=== PATIENT | male | born 1945 | race Hispanic/Latino ===

== ENCOUNTER 2018-09-12 11:08 | Day surgery (SDC) | payer OTHER ==
[2018-09-12 11:20] VITALS: BP 140/78
[2018-09-12 11:48] LABS: INR 0.97 (0.85-1.15); PARTIAL THROMBOPLASTIN TIME 24.5 SEC (26.3-35.5); PROTHROMBIN TIME 10.2 SEC (9.6-11.6)
[2018-09-12 11:50] LABS: POTASSIUM 5.4 mmol/L (3.5-5.1)
[2018-09-12] MEDS ORDERED: SODIUM CHLORIDE 0.9% 1000ML 1,000 ML IV ONE (12:13)
[2018-09-12 12:20] LABS: CREATININE 11.6 mg/dL (0.5-1.5)
--- NOTE | 2018-09-12 16:05 | NUR ---
PROCEDURE PT TAKEN TO [employer]ANGANESE HEATER FOR SCHEDULED PROCEDURE.
[2018-09-12] MEDS ORDERED: HEPARIN SODIUM 1000UNIT/ML 10ML VIAL ONE (16:19)
[2018-09-12] MEDS ORDERED: LIDOCAINE HCL 1% MDV 50ML VIAL ONE (16:20)
[2018-09-12] MEDS ORDERED: IODIXANOL 320 MG/ML 100 ML VIAL ONE (16:20)
[2018-09-12 17:40] VITALS: BP 154/71
--- NOTE | 2018-09-12 17:40 | NUR ---
POST OP RECEIVED PT FROM PUBLIC WEIGHER. S/P LEFT THIGH GRAFT DECLOT. DRESSING TO SITE DRY AND INTACT, PER DR ORDERS GRAFT READY TO BE USE. VS STABLE ON ARRIVAL. PT AWAKE AND ALERT, DENIED ANY PAIN OR DISCOMFORTS
[2018-09-12 17:55] VITALS: BP 148/70
[2018-09-12 18:10] VITALS: BP 152/68
--- NOTE | 2018-09-12 18:10 | NUR ---
DC DC INSTRUCTIONS GIVEN TO PT / NEPHEW, PT STATED [facility] CALLED HIM TO GO IN TOMORROW AT 8 AM TO RESUME HIS DIALYSIS THAT HE DIDN'T GET TODAY DUE TO CLOGGED LEFT THIGH GRAFT. PT INSTRUCTED TO KEEP DRESSING TO SITE DRY AND INTACT, PIV REMOVED.
--- NOTE | 2018-09-12 18:15 | NUR ---
DC PT DC HOME VIA WC, ACCOMPANIED BY NEPHEW, DRESSING TO LEFT UPPER THIGH AREA DRY AND INTACT, NO BLEEDING OR HEMATOMA TO SITE. VS STABLE. PT DENIED ANY PAIN OR DISCOMFORTS.
[2018-09-14] MEDS ORDERED: HYDR-3422 PO (09:56)
[2018-09-14] MEDS ORDERED: MIRT-73 PO (09:56)
[2018-09-14] MEDS ORDERED: OMEG-12 PO (09:56)
[2018-09-14] MEDS ORDERED: RANI150C4 PO (09:56)
[2018-09-14] MEDS ORDERED: FOLI0.8T2 PO (09:56)
[2018-09-14] MEDS ORDERED: SERT50TA12 PO (10:00)
[2018-09-14] MEDS ORDERED: CALC667C10 PO (10:00)
[2018-09-14] MEDS ORDERED: VITA100049 PO (10:00)
[2018-09-14] MEDS ORDERED: MIDO5TAB PO (10:03)
== END 2018-09-12 18:15 | disposition home or self-care (01) ==
LOC: CLH 11:08 → DAH 11:08 → CLH 18:15
PROVIDERS: ATTEND Internal Medicine Nephrology
DX: T82.868A Thrombosis due to vascular prosthetic devices, implants and grafts, initial encounter (principal); I12.0 Hypertensive chronic kidney disease with stage 5 chronic kidney disease or end stage renal disease; E11.22 Type 2 diabetes mellitus with diabetic chronic kidney disease; N18.6 End stage renal disease; Z99.2 Dependence on renal dialysis; Z98.890 Other specified postprocedural states; Z79.899 Other long term (current) drug therapy
CPT/HCPCS: 36415; 36905; 80048; 85610; 85730; A4606; C1725 ×2; C1757; C1769 ×2; C1894 ×2; J1644 ×2; J3490; J7030; Q9967

== ENCOUNTER 2018-09-13 10:14 | Day surgery (SDC) | payer OTHER ==
[~2018-09-13] VITALS: Ht 172.7 cm; Wt 91.7 kg
[2018-09-13 10:55] VITALS: BP 149/80
--- NOTE | 2018-09-13 13:50 | NUR ---
PROCEDURE PT TAKEN TO SECURITY INSTALLATION TECHNICIAN FOR SCHEDULED PROCEDURE
[2018-09-13] MEDS ORDERED: LIDOCAINE HCL 1% MDV 50ML VIAL ONE (14:17)
[2018-09-13 15:05] VITALS: BP 155/82
--- NOTE | 2018-09-13 15:05 | NUR ---
POST RECEIVED PT FROM [employer]KH[employer]RIMP BOAT. S/P JARET CATH PLACEMENT TO RIGHT IJ. DRESSING TO SITE DRY AND INTACT, VS STABLE ON ARRIVAL. PT AWAKE AND ALERT, DENIES ANY PAIN OR DISCOMFORTS. DRESSING TO LEFT UPPER THIGH AREA WHERE HE HAS HIS AVG.
[2018-09-13 15:20] VITALS: BP 148/78
[2018-09-13 15:35] VITALS: BP 146/78
[2018-09-13 15:50] VITALS: BP 144/78
[2018-09-13 16:05] VITALS: BP 152/78
--- NOTE | 2018-09-13 16:25 | NUR ---
TRANSFER PATIENT TAKEN TO ER VIA WC PER MD ORDERS FOR HEMODIALYSIS. RIGHT JARET CATH IN PLACE WITH DRESSING DRY AND INTACT, VS STABLE, CLOTHES, WATCH , CELL PHONE , GLASSES SEND WITH PATIENT, REPORT GIVEN TO LUNA INFANTE CHARGE NURSE AT ER. PT STABLE
[2018-09-14] MEDS ORDERED: HYDR-3422 PO ×2 (09:56)
[2018-09-14] MEDS ORDERED: FOLI0.8T2 PO ×2 (09:56)
[2018-09-14] MEDS ORDERED: OMEG-12 PO ×2 (09:56)
[2018-09-14] MEDS ORDERED: RANI150C4 PO ×2 (09:56)
[2018-09-14] MEDS ORDERED: MIRT-73 PO ×2 (09:56)
[2018-09-14] MEDS ORDERED: VITA100049 PO ×2 (10:00)
[2018-09-14] MEDS ORDERED: SERT50TA12 PO ×2 (10:00)
[2018-09-14] MEDS ORDERED: METO-408 PO (10:00)
[2018-09-14] MEDS ORDERED: CALC667C10 PO ×2 (10:00)
[2018-09-14] MEDS ORDERED: MIDO5TAB PO ×2 (10:03)
== END 2018-09-13 16:25 | disposition home or self-care (01) ==
LOC: DAH 10:14
PROVIDERS: ATTEND Internal Medicine Nephrology
DX: Z45.2 Encounter for adjustment and management of vascular access device (principal); I12.0 Hypertensive chronic kidney disease with stage 5 chronic kidney disease or end stage renal disease; E11.22 Type 2 diabetes mellitus with diabetic chronic kidney disease; N18.6 End stage renal disease; Z99.2 Dependence on renal dialysis; Z98.890 Other specified postprocedural states; Z79.899 Other long term (current) drug therapy
CPT/HCPCS: 36415; 36556; 77001; 84132; C1752; C1894; J1644; J3490

== ENCOUNTER 2018-09-13 16:33 | Inpatient (IN) | payer OTHER ==
[~2018-09-13] VITALS: Ht 172.7 cm; Wt 93.6 kg
[2018-09-13 19:20] VITALS: BP 135/73
[2018-09-13] MEDS ORDERED: DEXTROSE 50%-WATER 50 ML DISP.SYRIN IV PRN (20:30)
[2018-09-13] MEDS ORDERED: GLUCAGON 1MG KIT 1 MG ML IM PRN (20:30)
[2018-09-13] MEDS ORDERED: ONDANSETRON HCL 4 MG/2 ML VIAL IVP PRN (20:30)
[2018-09-13] MEDS ORDERED: ACETAMINOPHEN 325 MG TAB PO PRN ×2 (20:30→21:30)
[2018-09-13] MEDS: INSULIN R PO SS1 SQ SCH (21:00)
[2018-09-13] MEDS ORDERED: NITROGLYCERIN 0.4 MG SL TAB SL PRN (21:30)
[2018-09-13] MEDS ORDERED: SODIUM CHLORIDE 0.9% 1000ML 1,000 ML IV PRN (21:30)
[2018-09-13] MEDS ORDERED: 0.9% SODIUM CHLORIDE 1000 ML IV BAG IV PRN (21:30)
[2018-09-14] VITALS (14 sets, daily range): BP systolic 113–184; BP diastolic 51–81
[2018-09-14 04:27] LABS: HEMATOCRIT 31.7 % (42-54); MEAN CORPUSCULAR HEMOGLOBIN 33.9 pg (27.0-33.0); MEAN CORPUSCULAR HGB CONC 34.9 g/dL (32.0-36.0); MEAN CORPUSCULAR VOLUME 97.2 fL (79-99); PLATELET COUNT (AUTO) 143 K/uL (130-400); RED BLOOD CELL COUNT(AUTO) 3.27 MIL/uL (4.50-6.20); RED CELL DISTRIBUTION WIDTH 15.4 % (11.0-15.5); WHITE BLOOD COUNT (AUTO) 3.3 K/uL (4.8-10.8)
[2018-09-14 04:38] LABS: INR 0.99 (0.85-1.15); PARTIAL THROMBOPLASTIN TIME 28.1 SEC (26.3-35.5); PROTHROMBIN TIME 10.4 SEC (9.6-11.6)
[2018-09-14 04:39] LABS: POTASSIUM 4.4 mmol/L (3.5-5.1)
[2018-09-14 04:54] LABS: CREATININE 9.5 mg/dL (0.5-1.5)
[2018-09-14] MEDS: INSULIN R PO SS1 SQ SCH ×4 (05:19→21:00)
[2018-09-14] MEDS ORDERED: RANI150C4 PO ×2 (09:56)
[2018-09-14] MEDS ORDERED: HYDR-3422 PO ×2 (09:56)
[2018-09-14] MEDS ORDERED: MIRT-73 PO ×2 (09:56)
[2018-09-14] MEDS ORDERED: FOLI0.8T2 PO ×2 (09:56)
[2018-09-14] MEDS ORDERED: OMEG-12 PO ×2 (09:56)
[2018-09-14] MEDS ORDERED: CALC667C10 PO ×2 (10:00)
[2018-09-14] MEDS ORDERED: SERT50TA12 PO ×2 (10:00)
[2018-09-14] MEDS ORDERED: VITA100049 PO ×2 (10:00)
[2018-09-14] MEDS ORDERED: METO-408 PO (10:00)
[2018-09-14] MEDS ORDERED: MIDO5TAB PO ×2 (10:03)
[2018-09-14] MEDS: HEPARIN SODIUM 5000UNIT/ML 1ML VIAL IJ PRN ×2 (10:08→18:12)
[2018-09-14] MEDS ORDERED: LIDOCAINE HCL 1% MDV 50ML VIAL ONE (10:48)
[2018-09-14] MEDS ORDERED: HEPARIN SODIUM 1000UNIT/ML 10ML VIAL ONE (10:49)
[2018-09-14] MEDS ORDERED: IODIXANOL 320 MG/ML 100 ML VIAL ONE (11:03)
[2018-09-14] MEDS ORDERED: MIDODRINE HCL 5 MG TABLET PO PRN (12:15)
--- NOTE | 2018-09-14 13:00 | NUR ---
post op received from vat house laborer s/p declotting of left thigh HD graft. orders to continue bedrest x2 hours, post op vitals started and HOB 30 degrees. patient will complete two hours of dialysis via declotted site as per HD doc and radiologist. post op vitals started. patient is awake, alert and oriented. denies any pain to area and denies shortness of breath. HD nurses notified that patient is in room and awaiting completion of dialysis.
[2018-09-14] MEDS ORDERED: PHARMACY COMMUNICATION MISC SCH (15:30)
--- NOTE | 2018-09-14 16:00 | NUR ---
Dr. Carrillo was inform of the issues the Hemodialysis nurse is having with the graft and he gave orders.
--- NOTE | 2018-09-14 16:00 | NUR ---
Kassidy the dialysis nurse reported that he hasn't been able to get blood return from the graft to start hemodialysis and that Nurse Gregory also tried and unsuccessful and that they get only blood clots as return but no blood.
--- NOTE | 2018-09-14 16:10 | NUR ---
gambling supervisor was informed of the issues with the Graft and Dr. Marvin was paged to [phone], call pending to inform him
--- NOTE | 2018-09-14 17:00 | NUR ---
INITIAL MET Kavita COTTER- STARTING HD VIA JARET; PT AAOX3, HD X 5YEARS, LIVES [place], INDP IN ALL ADLS, NO DME, DRIVES TO /FROM HD TX; PT GOES TO [facility] , DCP IS HOME , SISTER LISTED ON FACE SHEET , WILL PROVIDE TRANSPORT HOME DCP HOME Addendum: 09/14/18 at 1810 by OLGA MITCHELL RN CM Amended: Links added.
[2018-09-14] MEDS: CALCIUM ACETATE 667 MG CAPSULE PO SCH (17:18)
--- NOTE | 2018-09-14 18:00 | NUR ---
No return call from Dr. Marvin yet went ahead and paged him once again but no return call
[2018-09-14] MEDS: METOPROLOL TARTRATE 25 MG TAB PO SCH (21:00)
[2018-09-14] MEDS ORDERED: MIRTAZAPINE 15 MG TABLET PO SCH (21:00)
[2018-09-15 04:01] LABS: BASOPHILS % (AUTO) 0.5 % (0.0-5.0); EOSINOPHILS % (AUTO) 2.9 % (0.0-8.0); HEMATOCRIT 34.8 % (42-54); LYMPHOCYTES % (AUTO) 11.5 % (21.0-51.0); MEAN CORPUSCULAR HEMOGLOBIN 33.3 pg (27.0-33.0); MEAN CORPUSCULAR HGB CONC 34.4 g/dL (32.0-36.0); MEAN CORPUSCULAR VOLUME 96.9 fL (79-99); MONOCYTES % (AUTO) 10.8 % (3.0-13.0); NEUTROPHILS % (AUTO) 74.3 % (40.0-77.0); PLATELET COUNT (AUTO) 115 K/uL (130-400); RED BLOOD CELL COUNT(AUTO) 3.59 MIL/uL (4.50-6.20); RED CELL DISTRIBUTION WIDTH 15.8 % (11.0-15.5); WHITE BLOOD COUNT (AUTO) 4.5 K/uL (4.8-10.8)
[2018-09-15 04:17] VITALS: BP 114/69
[2018-09-15 04:20] LABS: BILIRUBIN,TOTAL 0.3 mg/dL (0.2-1.0); POTASSIUM 5.1 mmol/L (3.5-5.1); TOTAL PROTEIN, SERUM 7.2 g/dL (6.0-8.3)
[2018-09-15 04:32] LABS: PLATELET MORPHOLOGY COMMENT SLIGHTLY DECREASED
[2018-09-15] MEDS: INSULIN R PO SS1 SQ SCH ×4 (06:51→20:18)
[2018-09-15 07:00] VITALS: BP 120/74
[2018-09-15 07:24] LABS: HEPATITIS A ANTIBODY IGM Negative (Negative); HEPATITIS B CORE IGM Negative (Negative); HEPATITIS Bs ANTIGEN SCREEN P Negative (Negative)
[2018-09-15] MEDS: CALCIUM ACETATE 667 MG CAPSULE PO SCH ×3 (08:00→17:00)
[2018-09-15] MEDS: METOPROLOL TARTRATE 25 MG TAB PO SCH ×2 (09:00→20:18)
[2018-09-15] MEDS: HYDROXYZINE HCL 25 MG TABLET PO SCH (09:08)
[2018-09-15] MEDS: FISH OIL 1000 MG/CAP PO SCH (09:08)
[2018-09-15] MEDS: VITAMIN E 400 UNIT CAPSULE PO SCH (09:08)
[2018-09-15] MEDS: SERTRALINE HCL 50 MG TABLET PO SCH (09:09)
[2018-09-15] MEDS: FOLIC ACID/VITAMIN B COMP W-C 1 MG CAPSULE PO SCH (09:09)
[2018-09-15] MEDS: FAMOTIDINE 20MG TAB 20 MG TAB PO SCH (09:09)
[2018-09-15 11:00] VITALS: BP 114/44
[2018-09-15 16:00] VITALS: BP 138/67
[2018-09-15 19:56] VITALS: BP 135/61
[2018-09-15] MEDS: MIRTAZAPINE 15 MG TABLET PO SCH (20:17)
--- NOTE | 2018-09-15 21:35 | NUR ---
CONSULT DR. CULVER HERE TO SEE PATIENT. EXAMINED AND SPOKE WITH HIM. ORDERS RECEIVED FOR CT ANGIOGRAM AND VEIN MAPPING STONE UPPER EXTREMITIES. NOTIFIED PATIENT PATIENT OF FASTING AFTER MIDNIGHT FOR CT SCAN TO BE DONE TOMORROW.
[2018-09-15 23:57] VITALS: BP 142/68
[2018-09-16 04:14] VITALS: BP 154/75
[2018-09-16 06:26] LABS: HEMATOCRIT 32.3 % (42-54); MEAN CORPUSCULAR HEMOGLOBIN 32.9 pg (27.0-33.0); MEAN CORPUSCULAR HGB CONC 34.1 g/dL (32.0-36.0); MEAN CORPUSCULAR VOLUME 96.4 fL (79-99); PLATELET COUNT (AUTO) 111 K/uL (130-400); RED BLOOD CELL COUNT(AUTO) 3.35 MIL/uL (4.50-6.20); RED CELL DISTRIBUTION WIDTH 15.6 % (11.0-15.5); WHITE BLOOD COUNT (AUTO) 4.4 K/uL (4.8-10.8)
[2018-09-16 06:47] LABS: ALBUMIN 2.9 g/dL (3.5-5.0); BILIRUBIN,TOTAL 0.4 mg/dL (0.2-1.0); POTASSIUM 5.8 mmol/L (3.5-5.1); TOTAL PROTEIN, SERUM 6.7 g/dL (6.0-8.3)
[2018-09-16] MEDS: INSULIN R PO SS1 SQ SCH ×4 (06:47→20:39)
[2018-09-16 06:57] LABS: CREATININE 9.5 mg/dL (0.5-1.5)
[2018-09-16 07:00] VITALS: BP 131/73
[2018-09-16] MEDS ORDERED: IOHEXOL 350 MG/ML 100ML INFUS..BTL IV ONE (07:24)
[2018-09-16] MEDS ORDERED: IOHEXOL-350 75 ML VIAL IV ONE (07:24)
[2018-09-16] MEDS: CALCIUM ACETATE 667 MG CAPSULE PO SCH ×3 (08:00→17:00)
[2018-09-16] MEDS: FOLIC ACID/VITAMIN B COMP W-C 1 MG CAPSULE PO SCH (08:46)
[2018-09-16] MEDS: FISH OIL 1000 MG/CAP PO SCH (08:46)
[2018-09-16] MEDS: VITAMIN E 400 UNIT CAPSULE PO SCH (08:46)
[2018-09-16] MEDS: METOPROLOL TARTRATE 25 MG TAB PO SCH ×3 (08:47→20:31)
[2018-09-16] MEDS: FAMOTIDINE 20MG TAB 20 MG TAB PO SCH (08:47)
[2018-09-16] MEDS: HYDROXYZINE HCL 25 MG TABLET PO SCH (08:47)
[2018-09-16] MEDS: SERTRALINE HCL 50 MG TABLET PO SCH (08:47)
[2018-09-16 11:00] VITALS: BP 144/72
--- NOTE | 2018-09-16 11:45 | NUR ---
MD ROUNDS DR. CULVER PRESENT AND ABLE TO VIEW IMAGE FROM CT ANGIOGRAM. PER DR. CULVER, WILL WAIT FOR FINAL REPORT TO BE ABLE TO PROCEED.
[2018-09-16] MEDS ORDERED: SODIUM POLYSTYRENE SULFONATE 15 GM/60 ML ML PO SCH (13:00)
[2018-09-16 16:00] VITALS: BP 149/68
[2018-09-16 19:00] VITALS: BP 152/73
[2018-09-16] MEDS: MIRTAZAPINE 15 MG TABLET PO SCH (20:32)
[2018-09-17 00:29] VITALS: BP 147/76
[2018-09-17 04:08] VITALS: BP 156/86
[2018-09-17] MEDS: INSULIN R PO SS1 SQ SCH ×4 (06:08→21:00)
[2018-09-17 07:32] LABS: HEMATOCRIT 32.2 % (42-54); MEAN CORPUSCULAR HEMOGLOBIN 32.9 pg (27.0-33.0); MEAN CORPUSCULAR HGB CONC 34.3 g/dL (32.0-36.0); MEAN CORPUSCULAR VOLUME 95.9 fL (79-99); PLATELET COUNT (AUTO) 109 K/uL (130-400); RED BLOOD CELL COUNT(AUTO) 3.36 MIL/uL (4.50-6.20); RED CELL DISTRIBUTION WIDTH 14.8 % (11.0-15.5); WHITE BLOOD COUNT (AUTO) 5.2 K/uL (4.8-10.8)
[2018-09-17 07:41] LABS: POTASSIUM 5.6 mmol/L (3.5-5.1)
[2018-09-17] MEDS: CALCIUM ACETATE 667 MG CAPSULE PO SCH ×3 (07:59→17:30)
[2018-09-17] MEDS: FOLIC ACID/VITAMIN B COMP W-C 1 MG CAPSULE PO SCH (07:59)
[2018-09-17] MEDS: VITAMIN E 400 UNIT CAPSULE PO SCH (07:59)
[2018-09-17] MEDS: FAMOTIDINE 20MG TAB 20 MG TAB PO SCH (08:00)
[2018-09-17] MEDS: METOPROLOL TARTRATE 25 MG TAB PO SCH ×2 (08:00→21:00)
[2018-09-17] MEDS: FISH OIL 1000 MG/CAP PO SCH (08:00)
[2018-09-17] MEDS: HYDROXYZINE HCL 25 MG TABLET PO SCH (08:00)
[2018-09-17] MEDS: SERTRALINE HCL 50 MG TABLET PO SCH (08:03)
[2018-09-17 08:23] VITALS: BP 144/67
[2018-09-17 12:10] VITALS: BP 131/71
[2018-09-17 16:53] VITALS: BP 133/67
[2018-09-17 20:00] VITALS: BP 126/70
[2018-09-17] MEDS: MIRTAZAPINE 15 MG TABLET PO SCH (22:28)
[2018-09-18] VITALS: BP 156/79
[2018-09-18 04:00] VITALS: BP 155/78
[2018-09-18 04:43] LABS: HEMATOCRIT 29.6 % (42-54); MEAN CORPUSCULAR HEMOGLOBIN 32.5 pg (27.0-33.0); MEAN CORPUSCULAR HGB CONC 34.2 g/dL (32.0-36.0); MEAN CORPUSCULAR VOLUME 95.2 fL (79-99); PLATELET COUNT (AUTO) 107 K/uL (130-400); RED BLOOD CELL COUNT(AUTO) 3.11 MIL/uL (4.50-6.20); RED CELL DISTRIBUTION WIDTH 15.1 % (11.0-15.5); WHITE BLOOD COUNT (AUTO) 3.6 K/uL (4.8-10.8)
[2018-09-18 04:53] LABS: POTASSIUM 5.2 mmol/L (3.5-5.1)
[2018-09-18] MEDS: INSULIN R PO SS1 SQ SCH ×3 (06:01→16:23)
[2018-09-18 07:14] VITALS: BP 132/62
[2018-09-18] MEDS: CALCIUM ACETATE 667 MG CAPSULE PO SCH ×2 (08:00→11:12)
[2018-09-18] MEDS: METOPROLOL TARTRATE 25 MG TAB PO SCH (08:42)
[2018-09-18] MEDS: VITAMIN E 400 UNIT CAPSULE PO SCH (11:11)
[2018-09-18] MEDS: SERTRALINE HCL 50 MG TABLET PO SCH (11:11)
[2018-09-18] MEDS: FISH OIL 1000 MG/CAP PO SCH (11:11)
[2018-09-18] MEDS: HYDROXYZINE HCL 25 MG TABLET PO SCH (11:11)
[2018-09-18] MEDS: FAMOTIDINE 20MG TAB 20 MG TAB PO SCH (11:12)
[2018-09-18] MEDS: FOLIC ACID/VITAMIN B COMP W-C 1 MG CAPSULE PO SCH (11:12)
[2018-09-18 12:00] VITALS: BP 149/73
[2018-09-18 15:58] VITALS: BP 142/73
== END 2018-09-18 16:30 | disposition home or self-care (01) | DRG 270 ==
LOC: EDH 16:33 → EDHIP 17:49 → 3CH 18:57
PROVIDERS: ADMIT Internal Medicine Nephrology; ATTEND Internal Medicine Nephrology
PROC: 02H633Z Insertion of Infusion Device into Right Atrium, Percutaneous Approach (ICD-10-PCS; 2018-09-13)
PROC: 5A1D70Z Performance of Urinary Filtration, Intermittent, Less than 6 Hours Per Day (ICD-10-PCS; 2018-09-13)
PROC: 04CL3ZZ Extirpation of Matter from Left Femoral Artery, Percutaneous Approach (ICD-10-PCS; principal; 2018-09-14)
PROC: B51C1ZZ Fluoroscopy of Left Lower Extremity Veins using Low Osmolar Contrast (ICD-10-PCS; 2018-09-14)
PROC: 5A1D70Z Performance of Urinary Filtration, Intermittent, Less than 6 Hours Per Day (ICD-10-PCS; 2018-09-14)
PROC: 5A1D70Z Performance of Urinary Filtration, Intermittent, Less than 6 Hours Per Day (ICD-10-PCS; 2018-09-14)
PROC: 06CN3ZZ Extirpation of Matter from Left Femoral Vein, Percutaneous Approach (ICD-10-PCS; 2018-09-14)
PROC: 5A1D70Z Performance of Urinary Filtration, Intermittent, Less than 6 Hours Per Day (ICD-10-PCS; 2018-09-17)
PROC: 5A1D70Z Performance of Urinary Filtration, Intermittent, Less than 6 Hours Per Day (ICD-10-PCS; 2018-09-17)
DX: T82.868A Thrombosis due to vascular prosthetic devices, implants and grafts, initial encounter (principal); N18.6 End stage renal disease; I12.0 Hypertensive chronic kidney disease with stage 5 chronic kidney disease or end stage renal disease; I42.9 Cardiomyopathy, unspecified; E87.70 Fluid overload, unspecified; E87.5 Hyperkalemia; E11.22 Type 2 diabetes mellitus with diabetic chronic kidney disease; E11.21 Type 2 diabetes mellitus with diabetic nephropathy; D64.9 Anemia, unspecified; E11.51 Type 2 diabetes mellitus with diabetic peripheral angiopathy without gangrene; F41.9 Anxiety disorder, unspecified; I25.10 Atherosclerotic heart disease of native coronary artery without angina pectoris; Y83.2 Surgical operation with anastomosis, bypass or graft as the cause of abnormal reaction of the patient, or of later complication, without mention of misadventure at the time of the procedure; Z99.2 Dependence on renal dialysis; Y92.89 Other specified places as the place of occurrence of the external cause
CPT/HCPCS: 36415; 36905; 71045; 75635; 80048; 80053; 80074; 82550; 82948; 84484; 85025; 85027; 85610; 85730; 90935; 93005; 93970; C1725; C1757; C1769; C1894; G0378; J1644; J3490; J7030; Q9967